=== PATIENT | male | born 1965 | race Caucasian/White ===

== ENCOUNTER → 2016-09-15 | Outpatient (CLI) | payer BC | END | disposition home or self-care (01) | LOC: GMAL 10:12 | PROVIDERS: ATTEND Family Medicine | DX: E29.1 Testicular hypofunction (principal) ==

== ENCOUNTER → 2016-10-26 | Outpatient (CLI) | payer BC | END | disposition home or self-care (01) | LOC: LAB.O 18:33 | PROVIDERS: ATTEND Family Medicine | DX: M25.50 Pain in unspecified joint (principal) ==

== ENCOUNTER → 2016-12-26 | Outpatient (CLI) | payer BC ==
--- NOTE | 2016-12-26 16:48 | MRI ---
EXAM DESCRIPTION: Cervical Spine CLINICAL HISTORY: CERVICAL RADICULOPATHY COMPARISON: MRI cervical spine 12/09/2013 TECHNIQUE: MRI of the cervical spine is performed according to our usual protocol. FINDINGS: Again demonstrated is susceptibility artifact from ACDF hardware from C5 through C7. There is straightening of the normal cervical lordosis. Vertebral body stature is maintained. There is no acute fracture or destructive osseous lesion. Craniocervical junction and the cervical spinal cord are unremarkable. C2-3: Disc desiccation. Minimal posterior disc bulge. Mild facet hypertrophy. No spinal canal or neural foraminal stenosis. C3-4: Disc desiccation with moderate disc narrowing. Mild facet hypertrophy. 2 mm posterior disc osteophyte complex. Moderate left and mild right neural foraminal stenosis which have slightly progressed since the prior exam. The spinal canal is patent. C4-5: Disc desiccation with moderate disc narrowing. Mild facet hypertrophy and uncovertebral spurring. 2.5 mm posterior disc osteophyte complex with mild spinal canal stenosis. Residual AP diameter of the thecal sac is 8 mm. Mild right greater than left neural foraminal stenosis. C5-6: Operative changes with susceptibility artifact which limits evaluation. No spinal canal or neural foraminal stenosis. C6-7: Operative changes with susceptibility artifact which limits evaluation. No spinal canal or neural foraminal stenosis. C7-T1: Disc desiccation. Mild facet hypertrophy and uncovertebral spurring. No spinal canal or neural foraminal stenosis. IMPRESSION: 1. Operative changes from C5 through C7 again demonstrated. 2. Slightly progressed multilevel spondylitic and facet degenerative changes in the cervical spine as described above. The findings remain most pronounced at C4-C5 where there is slightly progressed mild spinal canal stenosis and mild right greater than left neural foraminal stenosis. 3. At C3-C4, there is moderate left and mild right neural foraminal stenosis. 4. Other findings as above. Electronically signed by: Rashel Ngo MD 12/26/2016 4:46 PM CDT
--- NOTE | 2016-12-26 17:18 | MRI ---
EXAM DESCRIPTION: Lumbar Spine w/o Contrast CLINICAL HISTORY: LUMBAR RADICULOPATHY COMPARISON: None Available. TECHNIQUE: MRI of the lumbar spine is performed according to our usual protocol with axial and sagittal multi sequence imaging. FINDINGS: The designated L5-S1 disc space is on axial T2 image 2. There is chronic bilateral L5 spondylolysis with 7 mm anterolisthesis of L5 on S1. Mixed Modic endplate changes at this level. Vertebral body stature is maintained. There is no acute fracture or destructive osseous lesion. The conus medullaris terminates normally. L1-2: Mild disc desiccation. Mild facet hypertrophy. No spinal canal or neural foraminal stenosis. L2-3: Mild disc desiccation. Moderate facet hypertrophy with ligamentum flavum thickening. Minimal posterior disc bulge with no spinal canal or neural foraminal stenosis. L3-4: Disc desiccation with mild disc narrowing. Small posterior annular tear. Moderate facet hypertrophy with ligamentum flavum thickening. 3 mm posterior disc osteophyte complex with mild bilateral neural foraminal stenosis and mild bilateral lateral recess narrowing. The spinal canal is patent. L4-5: Disc desiccation with moderate disc narrowing. Moderate facet hypertrophy with ligamentum flavum thickening. Abnormal morphology of the left facet joint which may be developmental, degenerative, or postoperative. 2 mm posterior disc osteophyte complex with no spinal canal or neural foraminal stenosis. L5-S1: Disc desiccation with severe disc narrowing and vacuum disc. Mild facet hypertrophy. Anterolisthesis with posterior bulging and uncovering of the disc with osteophytic ridging of the endplates. Severe left greater than right neural foraminal stenosis. Material contacts both exiting L5 nerve roots. The spinal canal is patent. IMPRESSION: 1. Multilevel degeneration and facet generative changes in the lumbar spine as described above. The findings are most pronounced at L5-S1 where there is grade 1 spondylolisthesis with severe left greater than right neural foraminal stenosis. 2. At L3-L4, there is mild bilateral neural foraminal stenosis and mild bilateral lateral recess narrowing. 3. Other findings as above. Electronically signed by: Rashel Ngo MD 12/26/2016 5:17 PM CDT
== END ==
LOC: MRI 08:52
PROVIDERS: ATTEND Family Medicine
DX: M54.12 Radiculopathy, cervical region (principal); M54.16 Radiculopathy, lumbar region; M25.512 Pain in left shoulder; M43.17 Spondylolisthesis, lumbosacral region; Z98.890 Other specified postprocedural states

== ENCOUNTER → 2017-01-16 | Outpatient (CLI) | payer BC | END | disposition home or self-care (01) | LOC: GMAL 11:06 | PROVIDERS: ATTEND Family Medicine | DX: E29.1 Testicular hypofunction (principal) ==

== ENCOUNTER → 2017-03-13 | Outpatient (CLI) | payer BC | LOC: LAB.O 11:33 | PROVIDERS: ATTEND Family Medicine | DX: R19.7 Diarrhea, unspecified (principal) ==

== ENCOUNTER → 2017-04-25 | Outpatient (CLI) | payer BC ==
--- NOTE | 2017-04-25 17:15 | MRI ---
EXAM DESCRIPTION: Brain w/oContrast CLINICAL HISTORY: 52 years, Male, TRANSIENT CEREBRAL ISCHEMIC ATTACK COMPARISON: FINDINGS: Standard triplanar sequences. Diffusion weighted sequence does not show acute infarct. No hemorrhage or gradient sequence. Ventricles and sulci within normal limits. Moderate ethmoid and frontal sinus mucosal thickening. IMPRESSION: Unremarkable evaluation the brain. No acute infarct, hemorrhage or mass. Mild ethmoid and frontal sinus because thickening. Electronically signed by: Usama Alvarez MD 04/25/2017 5:14 PM [facility]
--- NOTE | 2017-04-25 23:07 | MRI ---
EXAM DATE: 04/25/2017 12:00 AM [employer]. PROCEDURE: MR CERVICAL SPINE WITHOUT IV CONTRAST. INDICATION: WEAKNESS. COMPARISON: 12/26/2016. TECHNIQUE: Multiplanar T1 and T2 MRI images of the cervical spine were acquired without administration of intravenous contrast. FINDINGS: Post surgical changes of ACDF C5-C7. The vertebral bodies otherwise demonstrate normal height and alignment. Limited evaluation of marrow signal C5-C7 secondary to susceptibility artifact. Marrow signal in the remainder of the lumbar spine is normal. Mild disc space height loss at C4-C5 and C3-C4 with desiccation. The cervical cord demonstrates normal signal and morphology. Congenitally small spinal canal. C2-C3: Mild disc bulge without significant spinal canal or neural foraminal stenosis. Mild bilateral facet arthropathy. C3-C4: Mild disc bulge with osteophytic spurring contributing to mild narrowing of the spinal canal. Uncovertebral spurring and mild bilateral facet arthropathy contributes to moderate left and mild right foraminal stenoses. C4-C5: Mild disc bulge with osteophytic spurring contributing to mild narrowing of the spinal canal. Uncovertebral spurring and facet arthropathy contributes to moderate right and mild left foraminal stenoses. C5-C6: No high-grade spinal canal or neural foraminal stenosis. C6-C7: No high-grade spinal canal or neural foraminal stenosis. C7-T1: No high-grade spinal canal or neural foraminal stenosis. The soft tissues of the neck are unremarkable. IMPRESSION: Postsurgical changes of C5-C7 ACDF. Mild multilevel degenerative changes of the cervical spine superimposed on a congenitally small spinal canal results in mild spinal canal narrowing at C3-C4 and C4-C5. Findings are overall stable from the prior exam. Moderate left neural foraminal stenosis at C3-C4, moderate right foraminal stenosis C4-C5. No cord signal abnormality. Electronically signed by: Simon Eduardo MD 04/25/2017 11:06 PM [facility]
== END | disposition home or self-care (01) ==
LOC: MRI 13:38
PROVIDERS: ATTEND Family Medicine
DX: G45.9 Transient cerebral ischemic attack, unspecified (principal)

== ENCOUNTER → 2017-05-01 | Outpatient (CLI) | payer BC | END | disposition home or self-care (01) | LOC: GMAL 16:43 | PROVIDERS: ATTEND Family Medicine | DX: R60.0 Localized edema (principal); R53.82 Chronic fatigue, unspecified ==

== ENCOUNTER → 2017-08-10 | Outpatient (CLI) | payer BC ==
--- NOTE | 2017-08-10 17:35 | RAD ---
EXAM DESCRIPTION: Clavicle,Left CLINICAL HISTORY: 52 years Male, CLAVICLE PAIN COMPARISON: None. TECHNIQUE: Left clavicle 2 x-ray views FINDINGS: No fracture. No dislocation. Plate and screws are seen in the lower C-spine. Mild degenerative changes are seen at the AC joint with minimal inferior spurring. No glenohumeral dislocation or scapular fracture. IMPRESSION: Negative for fracture or dislocation. Electronically signed by: Rodriguez Bolaños MD 08/10/2017 5:32 PM CDT
== END ==
LOC: RAD 08:00
PROVIDERS: ATTEND Orthopaedic Surgery
DX: M25.512 Pain in left shoulder (principal)

== ENCOUNTER → 2018-07-23 | Outpatient (CLI) | payer BC | LOC: GMAL 15:32 | PROVIDERS: ATTEND Family Medicine | DX: M79.641 Pain in right hand (principal); E10.9 Type 1 diabetes mellitus without complications; R35.0 Frequency of micturition; Z12.5 Encounter for screening for malignant neoplasm of prostate ==

== ENCOUNTER → 2018-08-20 | Outpatient (CLI) | payer BC | LOC: LAB.O 09:30 | PROVIDERS: ATTEND Family Medicine | DX: M25.50 Pain in unspecified joint (principal) ==

== ENCOUNTER → 2019-01-15 | Outpatient (CLI) | payer BC ==
--- NOTE | 2019-01-15 13:41 | MRI ---
EXAM DESCRIPTION: Shoulder,Left CLINICAL HISTORY: 53 years, Male, PAIN IN LEFT SHOULDER COMPARISON: Left clavicle CT dated 03/08/2016. Left clavicle radiograph 08/10/2017. TECHNIQUE: MRI of the left shoulder was performed with multiplanar multi sequence imaging without intravenous contrast. FINDINGS: Rotator tendons: Moderate supraspinatus, infraspinatus, subscapularis tendinosis. No focal rotator cuff tear or tendon retraction. The teres minor tendon is intact. Rotator muscles: No rotator cuff muscle atrophy. Glenoid labrum: Evaluation of the labrum is limited without significant joint fluid or intra-articular contrast. There appears to be mildly displace tear of the anterior, superior and posterior labrum (consistent with SLAP tear). Associated para labral cysts along the anterior superior labrum and posterior labrum measuring up to 1 cm (series 301 image 10). Acromion: The acromion morphology is type one. Bone and joints: Slightly heterogenous bone marrow signal, still within normal limits. Lateral humeral head subcortical cystic changes. No focal bone marrow contusion or fracture. No thickness cartilage defect. Mild degenerative changes at the inferior glenohumeral joint. Moderate left acromioclavicular joint osteoarthrosis with mild capsular hypertrophy. Biceps tendon: Normal course of the biceps tendon long head within the bicipital groove. The biceps labral anchor appears to be grossly intact. Mild tendinosis of the intra-articular portion of the biceps tendon. Trace amount of fluid distending the biceps tendon sheath consistent with mild tenosynovitis. Soft tissues: No focal muscle edema.. IMPRESSION: 1. Moderate background rotator cuff tendinosis without focal rotator cuff tear. No tendon retraction. 2. Mildly displace left glenoid labrum SLAP tear with para labral cysts formation. 3. Moderate acromioclavicular joint osteoarthrosis and mild lateral downsloping of the acromion can be a cause for external impingement on the rotator cuff. Mild subacromial/subdeltoid bursitis. 4. Mild biceps tenosynovitis. Electronically signed by: Ulises Kang DO 01/15/2019 1:40 PM CDT
--- NOTE | 2019-01-15 17:22 | MRI ---
EXAM DESCRIPTION: Cervical Spine: MRI. CLINICAL HISTORY: 53 years Male RADICULOPATHY COMPARISON: MRI scan cervical spine 04/25/2017. TECHNIQUE: Multiplanar, high-field MRI, multiple sequences, non-contrast Cervical spine. Note: the axial mFFE sequence was repeated multiple times due to motion artifact. FINDINGS: C3-C4: Disc desiccation and minimal disc space loss. Minimal posterior bulging, more to the left of midline, abutting the cord. Bilateral small uncinate spurs. Mild bilateral facet arthrosis more on the left. Bilateral mild foraminal narrowing. C4-C5: Disc desiccation and minimal disc space loss. Posterior midline bulge abutting the cord. Thickening of the posterior ligaments abutting the cord with mild canal stenosis. Progressed since the prior study. Bilateral uncinate spurs. Moderate left neural foraminal narrowing and mild right neural foraminal stenosis. Progressed since the prior study. Anterior cervical disc fusion construct C5-C6 and C6-C7. Minimal narrowing of the neural foramina in the canal at C5-C6 and C6-C7 bilaterally. Magnetic susceptibility artifact associated with the hardware. No abnormal fluid collections in the paravertebral soft tissues of the spinal canal. Stable since the prior study. C7-T1: Minimal disc desiccation and minimal posterior bulging but not touching the cord. Uncinate spur left abutting the disc space, resulting in moderate to severe left neural foraminal narrowing. Right neuroforamen and canal are patent. Mild arthrosis of the right C7-T1 facet. Normal signal in the C2-C3 and T1-T2 discs with no bulging. Disc spaces preserved. Canal and neural foramina are patent. Facet joints are unremarkable. Spinal alignment minimally kyphotic.. No cord compression or cord edema. Atlantoaxial joint with minimal arthrosis. Base of the cerebellar tonsils is at the level of the foramen magnum. Paravertebral soft tissues unremarkable. Vertebral bodies are not compressed at any level. Normal marrow signal in the remaining vertebral bodies and the posterior elements. IMPRESSION: 1. C3-C4 disc desiccation and minimal left posterior bulging abutting the cord. No canal or foraminal stenosis. 2. Posterior midline bulge of the C4-C5 disc and thickening of the posterior ligaments resulting in mild central canal stenosis. Progressed since the prior study. Mild right neural foraminal stenosis multifactorial, progressed since the prior study. 3. Anterior fusion construct C5-C6 and C6-C7. No complications. 4. Uncinate spur on the left at C7-T1 with moderate to severe left neural foraminal narrowing. Correlate for left C8 radiculopathy. Not well seen on the prior study. Electronically signed by: Dominguez Daley MD 01/15/2019 5:21 PM CDT
== END ==
LOC: MRI 09:53
PROVIDERS: ATTEND Family Medicine
DX: M50.10 Cervical disc disorder with radiculopathy, unspecified cervical region (principal); M46.02 Spinal enthesopathy, cervical region; S43.432A Superior glenoid labrum lesion of left shoulder, initial encounter; M19.012 Primary osteoarthritis, left shoulder; M75.22 Bicipital tendinitis, left shoulder; M65.812 Other synovitis and tenosynovitis, left shoulder; Z98.1 Arthrodesis status

== ENCOUNTER → 2019-03-12 | Outpatient (CLI) | payer BC | LOC: LAB.O 09:09 | PROVIDERS: ATTEND Family Medicine | DX: M25.50 Pain in unspecified joint (principal); E10.9 Type 1 diabetes mellitus without complications; E78.5 Hyperlipidemia, unspecified; Z79.899 Other long term (current) drug therapy ==

== ENCOUNTER → 2019-03-20 | Outpatient (CLI) | payer BC ==
--- NOTE | 2019-03-20 10:37 | RAD ---
EXAM DESCRIPTION: Shoulder,Left 2 or More Views CLINICAL HISTORY: PAIN IN LEFT SHOULDER COMPARISON: August 07, 2015 IMPRESSION: 4 views of the left shoulder show no acute fracture, focal bone destruction, or joint dislocation. Mild osteophytic changes of the left acromioclavicular joint are seen. Superior osteophyte of the distal clavicle is again seen. Electronically signed by: Seth Hutchison MD 03/20/2019 10:36 AM CDT
== END ==
LOC: RAD 09:01
PROVIDERS: ATTEND Orthopaedic Surgery
DX: M25.712 Osteophyte, left shoulder (principal)

== ENCOUNTER → 2019-08-01 | Outpatient (CLI) | payer BC | DX: Z00.01 Encounter for general adult medical examination with abnormal findings (principal); E53.9 Vitamin B deficiency, unspecified; E29.1 Testicular hypofunction; E55.9 Vitamin D deficiency, unspecified; Z12.5 Encounter for screening for malignant neoplasm of prostate; Z79.899 Other long term (current) drug therapy ==

== ENCOUNTER → 2019-10-17 | Outpatient (CLI) | payer BC ==
--- NOTE | 2019-10-17 11:28 | RAD ---
EXAM DESCRIPTION: Hand,Right 3 Views: CR/DR/XR CLINICAL HISTORY: 54 years Male FX OF METACARPAL BONE COMPARISON: Right hand at outside clinic October 2016. TECHNIQUE: 3 VIEWS AP. Lateral. Oblique. Right hand. FINDINGS: Angulated fracture distal right fifth metacarpal with volar and radial angulation of the metacarpal head typical for a boxer's fracture. Not seen on the prior study. Fifth metacarpal phalangeal joint is intact. Soft tissue swelling. No bone fragments. Minimal narrowing of the IP joints of all the fingers. IMPRESSION: Typical appearance of boxer's fracture of the distal right fifth metacarpal with angulation and soft tissue swelling. Not seen on prior study. Right fifth metacarpal phalangeal joint is intact. Electronically signed by: Dominguez Daley MD 10/17/2019 11:26 AM CDT
== END ==
LOC: RAD 08:08
PROVIDERS: ATTEND Orthopaedic Surgery
DX: S62.346D Nondisplaced fracture of base of fifth metacarpal bone, right hand, subsequent encounter for fracture with routine healing (principal); M79.9 Soft tissue disorder, unspecified

== ENCOUNTER → 2019-11-04 | Outpatient (CLI) | payer BC ==
--- NOTE | 2019-11-04 14:53 | RAD ---
EXAM DESCRIPTION: Hand,Right 3 Views CLINICAL HISTORY: 54 years Male, CLOSED FRACTURE OF METACARPAL BONE RIGHT COMPARISON: 10/17/2019 Findings: 3 view(s)/radiograph(s) Similar alignment of the fifth metacarpal neck fracture. Slight callus formation. No solid osseous bridging. No new fracture identified. No dislocation. IMPRESSION: Healing right fifth metacarpal neck fracture. Similar alignment. Electronically signed by: Wilder Mcdaniel MD 11/04/2019 2:52 PM CDT
== END ==
LOC: RAD 11:10
PROVIDERS: ATTEND Orthopaedic Surgery
DX: S62.366D Nondisplaced fracture of neck of fifth metacarpal bone, right hand, subsequent encounter for fracture with routine healing (principal)

== ENCOUNTER → 2019-12-16 | Outpatient (CLI) | payer BC ==
--- NOTE | 2019-12-16 11:00 | MRI ---
Study: MRI of the Left Shoulder. Indication: PAIN IN LEFT SHOULDER Technique: Multiplanar, multi sequence MRI of the left shoulder was obtained without intravenous contrast. Comparison: January 15, 2019. Findings: Moderate to severe hypertrophic AC joint osteoarthritis. Type I acromion with mild downsloping. Small volume subacromial subdeltoid bursal fluid. Supraspinatus and infraspinatus tendinosis. At the anterior infraspinatus tendon insertion is a subtle low-grade interstitial tear measuring 4 mm transverse by 6 mm AP and involving 20% expected thickness. Adjacent mild cortical thinning. Subscapularis tendinosis without rupture. Teres minor tendon intact. Moderate atrophy and grade 2 fatty infiltration teres minor muscle belly with mild muscular edema which can be seen with denervation. No lesion at the quadrilateral space. Intracapsular long head biceps tendinosis. High-grade tearing of the base of the bicipital labral anchor and superior labrum indicating a SLAP tear as noted on the prior. Additional more subtle tearing throughout the base of the posterior labrum and inferior labrum. Anterior superior sublabral foramen. No acute fracture or advanced glenohumeral joint osteoarthritis. Tiny joint effusion. Thickening and edema inferior glenohumeral ligament which can be seen with adhesive capsulitis. Impression: Supraspinatus and infraspinatus tendinosis with a low-grade interstitial tear at the anterior infraspinatus insertion Subscapularis tendinosis. Intracapsular long head biceps tendinosis. Extensive labral tearing, most pronounced superiorly where there is a SLAP tear. Adhesive capsulitis. 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 Electronically signed by: Leno Luo MD 12/16/2019 10:58 AM CDT
== END ==
LOC: MRI 08:03
PROVIDERS: ATTEND Family Medicine
DX: M75.92 Shoulder lesion, unspecified, left shoulder (principal); S43.432A Superior glenoid labrum lesion of left shoulder, initial encounter; M75.02 Adhesive capsulitis of left shoulder; M19.012 Primary osteoarthritis, left shoulder; M75.22 Bicipital tendinitis, left shoulder